=== PATIENT | male | born 1955 | race Caucasian/White ===

== ENCOUNTER 2016-07-25 09:12 | Day surgery (SDC) | payer OTHER ==
[2016-07-24 14:58] LABS: MANUAL DIFF NEEDED? NO
[2016-07-24 15:08] LABS: BASO% 0.5 % (0.0-0.8); EOS# 1.43 X1000 (0.0-0.7); EOS% 13.7 % (0.0-10.0); HEMATOCRIT 39.2 % (42.0-52.0); HEMOGLOBIN 13.2 g/dL (14.0-18.0); IMM GRAN# 0.02 X1000 (0.0-0.04); IMM GRAN% 0.2 % (0.0-0.5); LYMPH# 2.59 X1000 (1.2-3.4); LYMPH% 24.7 % (20.5-51.1); MCH 28.5 PG (27-31); MCHC 33.7 g/dL (33-37); MCV 84.7 FL (81-99); MONO% 7.6 % (1.7-9.3); NEUT% 53.3 % (42.2-75.2); PLT 401 X1000 (130-400); RBC 4.63 XMIL (4.7-6.1)
[2016-07-24 15:12] LABS: INR 1.01; PROTIME 10.7 Seconds (9.2-11.7); PTT 28.8 Seconds (22.0-36.0)
[2016-07-24 15:38] LABS: AGAP 12; ALBUMIN 3.9 g/dL (3.5-5.0); ALKALINE PHOSPHATASE 77 U/L (32-122); BUN 12 mg/dL (8-22); CALCIUM 8.9 mg/dL (8.8-10.2); CHLORIDE 104 mmol/L (98-107); COSMO 278; GOT 18 U/L (10-34); GPT 25 U/L (10-44); POTASSIUM 4.3 mmol/L (3.5-5.1); SODIUM 139 mmol/L (136-145); TCO2 23 mmol/L (25-35); TOTAL BILIRUBIN 0.25 mg/dL (0.20-1.00); TOTAL PROTEIN 6.4 g/dL (6.3-8.3)
[2016-07-25] MEDS ORDERED: NS 1,000 ML ONE (09:31)
[2016-07-25] MEDS ORDERED: HEPARIN 1000 UNITS/NS 1,000 ML ONE (10:38)
[2016-07-25] MEDS ORDERED: VERSED ONE (12:44)
[2016-07-25] MEDS ORDERED: DILAUDID ONE (12:44)
--- NOTE | 2016-07-25 13:50 | CARDIAC CATH REPORT ---
PROCEDURE NAME: - INDICATION FOR THE PROCEDURE: The patient with continued chest pain concerning for angina with risk factors of hypertension, hyperlipidemia, tobacco abuse. In addition, the patient has a myocardial perfusion scan with a fixed defect in the inferior wall per nuclear scan in January 2016. This is a moderate size defect. PROCEDURES PERFORMED: 1. Left heart catheterization. 2. Selective coronary angiography. 3. Left ventriculogram. PROCEDURE IN DETAIL: Mr. Alvarado was brought to the catheterization laboratory in fasting state. Informed consent was obtained. Prepped in usual fashion. He was anesthetized over the right radial artery after Franck's test was proved adequate. A 5-[place] sheath was placed in the right radial artery via true Seldinger technique. Radial cocktail was administered. Catheters were introduced and hemodynamic measurements made in the ascending thoracic aorta. Coronary angiography was performed in multiple views using JL3.5 and JR4 diagnostic catheters. Left heart catheterization, left ventriculogram were performed using the JR4. At conclusion of procedure all sheaths and catheters removed. TR band was left inflated at 8 mL. Good capillary refill. Good hemostasis. No apparent complications, 70 mL of IV contrast, 5 mL of blood loss. FINDINGS: 1. The left main is relatively long. There are minor luminal irregularities. 2. The left anterior descending originates from the left main. Proximally there is mild luminal irregularities up to around 30% as in the midvessel. The distal vessel is normal. 3. The circumflex originates from the left main. It is a relatively small vessel that is predominantly made of a OM1. Both the circumflex proper as well as the OM1 have mild luminal irregularities with no flow-limiting lesions. 4. Right coronary originates from the right coronary cusp. It is a large dominant vessel that appears normal throughout its course. 5. Left ventriculogram was performed demonstrating an EF of 55-60% with normal wall motion. 6. Aortic blood pressure is 113/64. The left ventricle pressure is 119/3 with an LVEDP of 15. ASSESSMENT: Mr. Alvarado is a 61-year-old white male with multiple risk factors for coronary disease who had a moderate-sized fixed defect on nuclear scan in January. He continued to have chest discomfort despite anginal therapy. PLAN: He has no flow-limiting lesions on his cardiac catheterization. At this point, we will discontinue his Ranexa, continue him on aspirin therapy and continue with aggressive secondary risk factor modification. The patient will return to the outpatient area for postprocedure convalescence and should be able to go home later on today.
[2016-07-25 15:56] VITALS: BP 115/60
== END 2016-07-25 16:15 | disposition home or self-care (01) ==
LOC: OPS 09:12
PROVIDERS: ATTEND Internal Medicine Cardiovascular Disease
DX: I25.10 Atherosclerotic heart disease of native coronary artery without angina pectoris (principal); I10 Essential (primary) hypertension; E78.5 Hyperlipidemia, unspecified; F17.210 Nicotine dependence, cigarettes, uncomplicated
CPT/HCPCS: 80053; 85025; 85610; 85730; 93458; J1170; J1644; J2250; J7030; Q9967